=== PATIENT | female | born 1975 | race Caucasian/White ===

== ENCOUNTER 2021-02-08 12:38 | Emergency (ER) | payer OTHER, SELFPAY ==
[2021-02-08 14:54] LABS: SARS-CoV-2 NAA Rapid Test Not Detected (NotDetected)
== END 2021-02-08 13:50 | disposition home or self-care (01) ==
LOC: BURERS 12:38
DX: J01.90 Acute sinusitis, unspecified (principal); B97.4 Respiratory syncytial virus as the cause of diseases classified elsewhere; Z20.822 Contact with and (suspected) exposure to COVID-19
CPT/HCPCS: 0241U; 99284

== ENCOUNTER 2021-07-14 18:15 | Emergency (ER) | payer OTHER, SELFPAY ==
[2021-07-14] MEDS ORDERED: Ibuprofen 800 MG TAB ONE (19:15)
[2021-07-15 21:02] LABS: SARS-CoV-2 PCR by NAA Not Detected (NotDetected)
== END 2021-07-14 21:56 | disposition home or self-care (01) ==
LOC: BURERS 18:15
DX: R05.9 Cough, unspecified (principal); R11.2 Nausea with vomiting, unspecified; R19.7 Diarrhea, unspecified; R51.9 Headache, unspecified; Z20.822 Contact with and (suspected) exposure to COVID-19
CPT/HCPCS: 71046; 87804; U0003; U0005